=== PATIENT | male | born 1960 | race African-American/Black ===

== ENCOUNTER 2023-03-04 06:29 | Emergency (ER) | payer OTHER ==
[~2023-03-04] VITALS: Ht 185.4 cm; Wt 121.0 kg
[2023-03-04] MEDS ORDERED: KETOROLAC 30MG/ML VIAL IM ONE (08:00)
[2023-03-04] MEDS ORDERED: IBUP-2028 MT (09:59)
[2023-03-04 10:34] VITALS: BP 141/81
== END 2023-03-04 10:39 | disposition home or self-care (01) ==
LOC: ER 06:29
DX: M54.50 Low back pain, unspecified (principal); I10 Essential (primary) hypertension
CPT/HCPCS: 72131; 73630; 96372; 99285; J1885; Z7610